=== PATIENT | male | born 2005 | race Caucasian/White ===

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

== ENCOUNTER 2024-01-17 18:36 | Emergency (ER) | payer OTHER, MEDICAID, SELFPAY ==
--- NOTE | 2024-01-17 18:38 | ED.WOUNDLAC ---
HPI - Wound/Laceration General Chief Complaint: Wound/Laceration Stated Complaint: cut chin Time Seen by Provider: 01/17/24 18:38 Source: patient Mode of arrival: ambulatory Limitations: no limitations History of Present Illness HPI narrative: Josh is a 18-year-old male patient presenting to the clinic today with complaints of a cut to his chin that occurred approx 1-2 hours prior to arrival. States he was at work with he tripped twisting his ankle and ended up cutting his chin on a cabinent that he was trying to carry. Denies any LOC. States that his ankle is not painful at this time. Tetanus is UTD Related Data Home Medications Medication Instructions Recorded Confirmed fexofenadine 180 mg tablet 180 mg PO DAILY 10/26/20 02/02/23 fluticasone propionate 50 2 spray intranasal BID PRN 10/28/20 02/02/23 mcg/actuation nasal Congestion spray,suspension (Flonase Allergy Relief) minocycline 4 % topical foam 1 applic topical DAILY 02/01/23 02/02/23 (Amzeeq) tazarotene 0.045 % lotion (Arazlo) 1 applic topical DAILY 02/01/23 02/02/23 Allergies Allergy/AdvReac Type Severity Reaction Status Date / Time No Known Drug Allergies Allergy Unknown Unknown Verified 01/17/24 18:41 Review of Systems Review of Systems: Pertinent positives per HPI. Patient denies any fever, chills, rash, headache, visual changes, dizziness, cough, runny nose, sore throat, shortness of breath, chest pain, palpitations, nausea, vomiting, diarrhea, constipation, abdominal pain, or any urinary issues. [facility] Past Medical History Medical History ADD (attention deficit disorder) Asthma Seasonal allergies Social History Social History Smoking status: Never smoker Lack of Transportation: No Lack of Food: Never True Current Housing: I Have Housing Concerned About Future Housing: No Difficulty Paying Gas/Electric Bills: No Difficulty Paying for Meds: No Currently Unemployed: No Education: High School Diploma/GED Difficulty w/ Childcare or Family Care: No Comments At the time of my signature, I reviewed and agree with the nursing past medical, surgical, social, and family history. There is no relevant family history pertinent to the patient complaint. Exam Narrative: General: Well-developed, well nourished, in no apparent distress Head: Normocephalic, atraumatic. Cardio: Regular rate and rhythm, s1 and s2 normal, no murmur appreciated. Resp: Clear to auscultation bilaterally, no rhonchi, rales, wheezing or rubs. Integumentary: [place], warm, and dry, intact without lesion,1.5cm superficial laceration to the chin. Bleeding controlled. Course Course Emergency Course: Portions of this record may have been created with voice recognition software. Level of Care: Express Care Visit Vital Signs Vital signs: Vital Signs Temperature 37.4 C 01/17/24 18:46 Pulse Rate 93 01/17/24 18:46 Respiratory Rate 18 01/17/24 18:46 Blood Pressure 130/73 01/17/24 18:46 Pulse Oximetry 100 01/17/24 18:46 Oxygen Delivery Room Air 01/17/24 18:46 Temperature 37.4 C 01/17/24 18:46 Pulse Rate 93 01/17/24 18:46 Respiratory Rate 18 01/17/24 18:46 Blood Pressure 130/73 01/17/24 18:46 Pulse Oximetry 100 01/17/24 18:46 Oxygen Delivery Room Air 01/17/24 18:46 Vital signs reviewed Procedures Laceration Laceration 1: Date: 01/17/24 Site: face (Chin) Size (cm): 1.5 Description: linear Depth: simple, single layer Pre-repair: wound explored (Patient facial hair was trimmed around the wound edges, cleansed with antiseptic wound wash) and irrigated ====== Skin Level ====== Skin layer closed with: dermabond ====== Subcutaneous Layer ====== ====== Muscle Layer ====== ====== Tendon Layer ====== MDM - Wound/La
[2024-01-17 18:46] VITALS: BP 130/73; PULSE 93; RESP 18; TEMP 37.4; O2SAT 100
== END 2024-01-17 19:16 | disposition home or self-care (01) ==
PROVIDERS: Emergency Provider Nurse Practitioner Family; PCP Physician Assistant
DX: S01.81XA Laceration without foreign body of other part of head, initial encounter (principal); W01.198A Fall on same level from slipping, tripping and stumbling with subsequent striking against other object, initial encounter; Y99.0 Civilian activity done for income or pay; J45.909 Unspecified asthma, uncomplicated
CPT/HCPCS: 12011; 99212; G0463